=== PATIENT | female | born 1980 | race Caucasian/White ===

== ENCOUNTER 2017-01-12 11:19 | Emergency (ER) | payer BC, MEDICAID ==
[2017-01-12 11:32] VITALS: BP 122/77
--- NOTE | 2017-01-12 12:03 | UC ---
Skin Complaint HPI - HPI Summary HPI Summary: 36 y/o female presents to the urgent care c/o little bumps in her lips for the past 3 weeks on and off. However, yesterday bumps in her lips returned, and this morning her lips were swollen. Pt denies new make up, eating different foods. Pt states it itches and she has taken Benadryl and has used Aquafor cream to alleviate symptoms. She is concerned w/ an allergic reaction. Pt denies Hx herpes, fever, SOB throat swelling, chest pain,N/V/D, MCKOY. Pt has not other complains - History of Current Complaint Chief Complaint: UCAllergicReaction Time Seen by Provider: 01/12/17 12:01 Stated Complaint: ALLERGIC REACTION Hx Obtained From: Patient Hx Last Menstrual Period: 01/12/17 ?: No Onset/Duration: Gradual Onset, Lasting Weeks, Still Present Skin Exposure Onset/Duration: Weeks Ago Timing: Intermittent Episodes Lasting: - few days and then resolves Onset Severity: Mild Current Severity: Moderate Pain Intensity: 0 Pain Scale Used: 0-10 Numeric Location: Discrete - all around her lip border Character: Swelling, Pruritus Aggravating: Touch Alleviating: OTC Meds Associated Signs & Symptoms: Negative: Numbness, Difficulty Breathing, Fever, Chest Pain, Throat Tightening, Lightheadedness Related History: Possible Reaction to: Environmental Exposure - Allergy/Home Medications Allergies/Adverse Reactions: Allergies Allergy/AdvReac Type Severity Reaction Status Date / Time Asparagus Allergy Hives Verified 10/02/16 08:51 Shellfish Allergy Allergy Hives and Verified 01/12/17 11:34 lip swelling Review of Systems Constitutional: Negative Skin: Rash - around her lips Eyes: Negative ENT: Negative Respiratory: Negative Cardiovascular: Negative Gastrointestinal: Negative Genitourinary: Negative Motor: Negative Neurovascular: Negative Musculoskeletal: Negative Neurological: Negative Psychological: Negative All Other Systems Reviewed And Are Negative: Yes PMH/Surg Hx/FS Hx/Imm Hx Previously Healthy: Yes GI/ History: Gastroesophageal Reflux - Surgical History Surgical History: Yes Surgery Procedure, Year, and Place: TONSILECTOMY - Family History Family History: Lung cancer - Social History Occupation: Employed Full-time Lives: With Family Alcohol Use: None Substance Use Type: None Smoking Status (MU): Former Smoker - Immunization History Most Recent Influenza Vaccination: 9/17/15 Most Recent Tetanus Shot: 02/21/15 Most Recent Pneumonia Vaccination: na Physical Exam Triage Information Reviewed: Yes Appearance: Well-Appearing, No Pain Distress, Well-Nourished, Thin Vital Signs: Initial Vital Signs Temp 97.8 F 01/12/17 11:29 Pulse 68 01/12/17 11:29 Resp 16 01/12/17 11:29 BP 122/77 01/12/17 11:29 Pulse Ox 100 01/12/17 11:29 Vital Signs Reviewed: Yes Eye Exam: Normal Eyes: Positive: Conjunctiva Clear - PERRLA, EOMI, fundi grossly normal. ENT Exam: Normal ENT: Positive: Normal ENT inspection, Hearing grossly normal, Pharynx normal, TMs normal Dental Exam: Normal Neck exam: Normal Neck: Positive: Supple, Nontender, No Lymphadenopathy Respiratory Exam: Normal Respiratory: Positive: Chest non-tender, Lungs clear, Normal breath sounds, No respiratory distress Cardiovascular Exam: Normal Cardiovascular: Positive: RRR, No Murmur, Pulses Normal, Brisk Capillary Refill Abdominal Exam: Normal Abdomen Description: Positive: Nontender, No Organomegaly, Soft. Negative: CVA Tenderness (R), CVA Tenderness (L) Bowel Sounds: Positive: Present Musculoskeletal Exam: Normal Musculoskeletal: Positive: Strength Intact, ROM Intact, No Edema Neurological Exam: Normal Neurological: Positive: Alert Psychological Exam: Normal Skin: Positive: rashes - discrete papules around the upper and the lower lip sourrounding the vermilon, mildly swollen, non tender to palpation, mild erythema. Course/Dx - Course Course Of Treatment: 36 y/o female presents to the urgent care c/o little bumps in her lips for the past 3 weeks on and off. However, yesterday bumps in her lips returned, and this morning her lips were swollen. Pt denies new make up, eating different foods. Pt states it itches and she has taken Benadryl and has used Aquafor cream to alleviate symptoms. She is concerned w/ an allergic reaction. Pt denies Hx herpes, fever, SOB throat swelling, chest pain,N/V/D, MCKOY. HX obtained. Allergic reaction vs atopic dermatitis ? Pt Rx Prednisone PO , Benadryl and tracolimus topical cream. Pt advised if symptoms do not improve in 3 days to f/u with her PCP for furhter management. Pt understood and agreed - Differential Diagnoses - Skin Complaint Differential Diagnoses: Angioedema, Cellulitis, Drug Rash, Eczema, Urticaria - Diagnoses Provider Diagnoses: 1- unspecified rash around lips Discharge - Discharge Plan Condition: Stable Disposition: HOME Prescriptions: Tacrolimus (Topical) [Tacrolimus OINT] 0.03 % EX BID #1 oin diPHENhydraMINE PO* [Benadryl PO 25 MG TAB*] 25 mg PO TID PRN #15 tab PRN Reason: Rash predniSONE TAB* [Deltasone TAB*] 20 mg PO DAILY #11 tab Patient Education Materials: Acute Rash (ED) Referrals: Mainor Roberson MD [Primary Care Provider] - 3 Days Additional Instructions: Please take medication as directed to alleviate symptoms. If not improvement please f/u with your PCP or return to the urgent care for further evaluation and treatment.
== END 2017-01-12 12:26 | disposition home or self-care (01) ==
LOC: UCEAST 11:19
DX: R21 Rash and other nonspecific skin eruption (principal); K21.9 Gastro-esophageal reflux disease without esophagitis; Z87.891 Personal history of nicotine dependence; Z91.013 Allergy to seafood; Z91.018 Allergy to other foods
CPT/HCPCS: 99211; G0463